=== PATIENT | male | born 1960 | race Caucasian/White ===

== ENCOUNTER 2019-08-09 08:15 | Inpatient (IN) | payer OTHER ==
--- NOTE | 2019-08-09 08:48 | PDOC ---
History of Present Illness - General Chief Complaint: Pain Stated Complaint: ABD PAIN Past History - Past Medical History Allergies/Adverse Reactions: Allergies Allergy/AdvReac Type Severity Reaction Status Date / Time No Known Allergies Allergy Verified 08/09/19 08:35 Home Medications: Ambulatory Orders Amlodipine Besylate 10 mg PO DAILY 08/09/19 Atorvastatin Calcium 40 mg PO HS 08/09/19 Tamsulosin HCl [Flomax -] 0.4 mg PO HS #30 cap.er.24h 08/10/19 - Suicide/Smoking/Psychosocial Hx Smoking History: Never smoked Hx Alcohol Use: Yes (daily) Drug/Substance Use Hx: No *Physical Exam - Vital Signs Last Vital Signs Temp Pulse Resp BP Pulse Ox 97.4 F L 111 H 18 171/96 H 98 08/09/19 08:15 08/09/19 08:15 08/09/19 08:15 08/09/19 08:15 08/09/19 08:15 ED Treatment Course - LABORATORY CBC & Chemistry Diagram: 08/10/19 05:30 08/10/19 05:30 Medical Decision Making - Medical Decision Making HPI: 59yo M with PMH of HTN, HLD, and hernia surgery presenting with abdominal pain. Patient states the pain woke him up around 5:30pm this morning. Thereafter, his pain steadily worsened and is now rated 8/10 and described as "gas" and "pressure." He has never felt anything like this before. Has not taken anything for pain. Reports nausea but no vomiting. Had two semi-loose brown bowel movements today without blood. Never had a colonoscopy. Denies history of kidney stone or diverticulitis. No urinary symptoms. Denies fever, chills, chest pain, or shortness of breath. PCP: Dr. Auguste (affiliated with [facility]) ROS: Constitutional: no fever, no chills HEENT: no throat pain, no dysphagia Cardiovascular: no chest pain, no palpitations Respiratory: no cough, no shortness of breath Gastrointestinal: +abdominal pain, +nausea Genitourinary: no dysuria, no hematuria Musculoskeletal: no myalgia, no arthralgia Skin: no rash, no itching Neurologic: no headache, no weakness PE: General: Awake, alert, and fully oriented, writhing in pain Head: No signs of trauma Eyes: EOMI, sclera anicteric ENT: Moist mucus membranes Neck: Normal ROM, supple Lungs: Lungs clear, Normal breath sounds Cardio: Regular rhythm, S1 and S2 present Abdomen: Tender to palpation in LLQ. Soft, nondistended. +guarding; no rebound, no masses Extremities: Normal range of motion, Distal pulses present SKIN: Warm, Dry, normal turgor Neurologic: Cranial nerves II through XII grossly intact. Normal speech ED Course/MDM: DDX including but not limited to diverticulitis, pyelonephritis, UTI, nephrolithiasis, ACS, gastritis, GERD, colitis, SBO Labs, EKG, CXR, CTAP with IV contrast Morphine Zofran Fluids 08/09/19 08:48 EKG: rate 115, QTc 453, Sinus tachycardia with PVCs CBC WBC 11.2 K/mm3 (4.0-10.0) H 08/09/19 09:30 RBC 4.07 M/mm3 (4.00-5.60) 08/09/19 09:30 Hgb 13.0 GM/dL (11.7-16.9) 08/09/19 09:30 Hct 38.2 % (35.4-49) 08/09/19 09:30 MCV 93.9 fl (80-96) 08/09/19 09:30 MCH 32.0 pg (25.7-33.7) 08/09/19 09:30 MCHC 34.0 g/dl (32.0-35.9) 08/09/19 09:30 RDW 13.3 % (11.9-15.9) 08/09/19 09:30 Plt Count 252 K/MM3 (134-434) 08/09/19 09:30 MPV 8.8 fl (7.5-11.1) 08/09/19 09:30 Absolute Neuts (auto) 10.0 K/mm3 (1.5-8.0) H 08/09/19 09:30 Neutrophils % 89.6 % (42.8-82.8) H 08/09/19 09:30 Lymphocytes % 6.0 % (8-40) L 08/09/19 09:30 Monocytes % 3.8 % (3.8-10.2) 08/09/19 09:30 Eosinophils % 0.1 % (0-4.5) 08/09/19 09:30 Basophils % 0.5 % (0-2.0) 08/09/19 09:30 Nucleated RBC % 0 % (0-0) 08/09/19 09:30 Mild leukocytosis CMP Sodium 140 mmol/L (136-145) 08/09/19 09:31 Potassium 4.1 mmol/L (3.5-5.1) 08/09/19 09:31 Chloride 106 mmol/L (98-107) 08/09/19 09:31 Carbon Dioxide 14 mmol/L (21-32) L 08/09/19 09:31 Anion Gap 19 MMOL/L (8-16) H 08/09/19 09:31 BUN 27.0 mg/dL (7-18) H 08/09/19 09:31 Creatinine 2.2 mg/dL (0.55-1.3) H 08/09/19 09:31 Est GFR (CKD-EPI)AfAm 36.64 08/09/19 09:31 Est GFR (CKD-EPI)NonAf 31.62 08/09/19 09:31 Random Glucose 99 mg/dL (74-106) 08/09/19 09:31 Calcium 10.1 mg/dL (8.5-10.1) 08/09/19 09:31 Total Bilirubin 1.3 mg/dL (0.2-1) H 08/09/19 09:31 AST 45 U/L (15-37) H 08/09/19 09:31 ALT 31 U/L (13-61) 08/09/19 09:31 Alkaline Phosphatase 80 U/L (45-117) 08/09/19 09:31 Troponin I 0.02 ng/ml (0.00-0.05) 08/09/19 09:31 Total Protein 7.9 g/dl (6.4-8.2) 08/09/19 09:31 Albumin 4.2 g/dl (3.4-5.0) 08/09/19 09:31 Lipase 260 U/L (73-393) 08/09/19 09:31 Electrolytes unremarkable Cr elevated 2.2, unknown baseline Tpn undetectable Lipase normal CT order changed to without contrast Pending CT Patient states he is no longer nauseous. Pain is decreased to /10. Will reassess. 08/09/19 12:50 CT showing 2mm stone in L. kidney with mild hydronephrosis, per radiology report : "The lung bases are clear. There is a 2 mm calcification within the lower pole of the left kidney consistent with a nonobstructing calculus. There is a mild degree of left-sided hydronephrosis with dilatation of the left ureter down to the urinary bladder. There is no obvious obstruction and this appearance could be due to a recently passed calculus. Clinical correlation is advised. The liver, spleen, pancreas, adrenal glands and kidneys demonstrate no significant abnormalities. The gallbladder is clear. There is no evidence of intra-abdominal or retroperitoneal lymphadenopathy or fluid collections. There is no evidence of pneumoperitoneum, bowel obstruction or intra-abdominal abscess. There is no CT evidence of acute appendicitis or diverticulitis. Examination of the pelvis demonstrates no evidence of pelvic masses, fluid collections or lymphadenopathy. The prostate gland is enlarged measuring 6.1 x 4.8 x 5.5 cm. There is no evidence of acute bony pathology. IMPRESSION: 1. Left nephrolithiasis. 2. Mild left-sided hydronephrosis and hydroureter without obvious obstruction. The possibility of a recently passed calculus should be considered. Please see above discussion. " Given elevated Cr, hydronephrosis, and nephrolithiasis, we will plan to admit for CAROLINA. 08/09/19 15:[address] Holder who accepted patient for admission under Dr. John They already came and evaluated the patient. Awaiting callback from Dr. Rios Sending second page 08/09/19 16:27 Inpatient team notified via [employer] regarding difficulty in urology consult. They messaged back saying they have already gotten in touch with urology. *DC/Admit/Observation/Transfer Diagnosis at time of Disposition: CAROLINA (acute kidney injury), Nephrolithiasis Abdominal pain Qualifiers: Abdominal location: left lower quadrant Qualified Code(s): R10.32 - Left lower quadrant pain - Discharge Dispostion Disposition: HOME Condition at time of disposition: Stable Decision to Admit order: Yes - Referrals - Patient Instructions - Post Discharge Activity
[2019-08-09] MEDS ORDERED: ONDANSETRON 4 MG/2 ML VIAL IVPUSH ONE (08:58)
[2019-08-09] MEDS ORDERED: SODIUM CHLORIDE 1,000 ML IV STA (08:58)
[2019-08-09] MEDS ORDERED: morphine CARPU-JECT 4 MG/1 ML DISP.SYRIN IVPUSH ONE (08:58)
--- NOTE | 2019-08-09 09:16 | PDOC ---
Attending Attestation - Resident Resident Name: Rhona Holden - ED Attending Attestation I have performed the following: I have examined & evaluated the patient, The case was reviewed & discussed with the resident, I agree w/resident's findings & plan, Exceptions are as noted - HPI HPI: 59 yo M history HTN, HL presents with severe abdominal pain that woke him from sleep at 5am this morning. He states that he was in his usual state of health yesterday. He states he woke up with LLQ abd pain that has progressively worsened since 5am, now severe and constant. Denies prior similar symptoms. No associated urinary symptoms. +Nausea and loose stools, but no vomiting, no fever. No recent illness. - Physicial Exam PE: GENERAL: Awake, alert, and fully oriented. Appears uncomfortable. HEAD: No signs of trauma EYES: PERRLA, EOMI, sclera anicteric, conjunctiva clear ENT: Auricles normal inspection, hearing grossly normal, nares patent, oropharynx clear without exudates. Dry mucosa NECK: Normal ROM, supple, no lymphadenopathy, JVD, or masses LUNGS: Breath sounds equal, clear to auscultation bilaterally. No wheezes, and no crackles HEART: Regular rate and rhythm, normal S1 and S2, no murmurs, rubs or gallops ABDOMEN: Soft, +LLQ tenderness, normoactive bowel sounds. +Guarding, no rebound. No masses EXTREMITIES: Normal range of motion, no edema. No clubbing or cyanosis. No cords, erythema, or tenderness NEUROLOGICAL: Cranial nerves II through XII grossly intact. Normal speech. Motor and sensation intact SKIN: Warm, dry, normal turgor, no rashes or lesions noted. - Medical Decision Making Symptoms may be diverticulitis vs kidney stone. His discomfort and inability to find a comfortable position would suggest kidney stone, however, the GI symptoms would indicate diverticulitis. He has no back pain, no CVAT. Will obtain CT a/p (non-contrast, as he has renal insufficiency- will ultimately contact his PMD to verify if this is preexisting). Addendum: Patient later found to have recently passed a kidney stone (pain free at time of CT). CAROLINA on labs, likely due to the recently passed stone, as the only remaining stone is 2mm and is still in the kidney, therefore not the source of the CAROLINA. More likely it was result of obstruction from the stone that passed.
[2019-08-09] MEDS ORDERED: morphine SULFATE 4 MG/ML VIAL ONE (09:34)
[2019-08-09] MEDS ORDERED: ONDANSETRON 4 MG/2 ML VIAL ONE (09:34)
[2019-08-09 10:08] LABS: BASO % 0.5 % (0-2.0); EOS % 0.1 % (0-4.5); HEMATOCRIT 38.2 % (35.4-49); MEAN CELL VOLUME 93.9 fl (80-96); MEAN PLT VOLUME 8.8 fl (7.5-11.1); MONO % 3.8 % (3.8-10.2); NEUT % 89.6 % (42.8-82.8); PLATELET COUNT 252 K/MM3 (134-434); RBC 4.07 M/mm3 (4.00-5.60); RDW 13.3 % (11.9-15.9); WHITE BLOOD COUNT 11.2 K/mm3 (4.0-10.0)
[2019-08-09 10:27] LABS: EPI CELLS 0.9 /HPF (0-5/HPF); HYALINE CASTS 2 /lpf (0-8); URINE APPEARANCE CLEAR; URINE BACTERIA 1.9 /hpf (NEGATIVE); URINE BILIRUBIN NEGATIVE (NEGATIVE); URINE COLOR YELLOW; URINE GLUCOSE (UA) NEGATIVE (NEGATIVE); URINE KETONE TRACE (NEGATIVE); URINE LEUK ESTERASE NEGATIVE (NEGATIVE); URINE NITRITE NEGATIVE (NEGATIVE); URINE PROTEIN 1+ (NEGATIVE); URINE RBC 1 /hpf (0-4); URINE UROBILINOGEN 0.2 mg/dL (0.2-1.0); URINE WBC 1 /hpf (0-5)
[2019-08-09 10:35] LABS: ALBUMIN 4.2 g/dl (3.4-5.0); BILIRUBIN,TOTAL 1.3 mg/dL (0.2-1); CALCIUM 10.1 mg/dL (8.5-10.1); CREATININE 2.2 mg/dL (0.55-1.3); POTASSIUM 4.1 mmol/L (3.5-5.1); TOT PROT 7.9 g/dl (6.4-8.2)
[2019-08-09 11:14] LABS: INR 0.83 (0.83-1.09); PROTHROMBIN TIME (PATIENT) 9.8 SEC (9.7-13.0)
[2019-08-09] MEDS ORDERED: DEXTROSE 5%-NORMAL SALINE 1,000 ML IV SCH (16:45)
[2019-08-09] MEDS ORDERED: ACETAMINOPHEN 650 MG/20.3 ML ORAL SOLUTION (CUPS) PO PRN (17:31)
--- NOTE | 2019-08-09 17:43 | HP ---
CHIEF COMPLAINT: flank pain PCP: [facility] HISTORY OF PRESENT ILLNESS: Pt is a 59 y/o M with PMH HTN, HLD who presented to ED with complaint of sudden onset L flank pain. Pain began overnight last night and has been severe, deep, and throbbing. He states he has no history of renal stones in himself or in family. He has not noted any blood or stones in his urine. At the time of my interview, pain has subsided. Pt states that he has been urinating very frequently all day, and some time after he received morphine this afternoon, his pain rapidly diminished and has remained at a low level. He has not been straining his urine. ER course was notable for: (1) CT with dilated ureter and 2mm renal stone (2) (3) Recent Travel: denies PAST MEDICAL HISTORY: HTN, HLD PAST SURGICAL HISTORY: hernia remotely Social History: Smoking: denies Alcohol: daily Drugs: denies Family History: no stones Allergies No Known Allergies Allergy (Verified 08/09/19 08:35) HOME MEDICATIONS: Home Medications Medication Instructions Recorded Amlodipine Besylate 10 mg PO DAILY 08/09/19 Atorvastatin Calcium 40 mg PO HS 08/09/19 Losartan Potassium 100 mg PO DAILY 08/09/19 REVIEW OF SYSTEMS CONSTITUTIONAL: Absent: fever, chills, diaphoresis, generalized weakness, malaise, loss of appetite, weight change HEENT: Absent: rhinorrhea, nasal congestion, throat pain, throat swelling, difficulty swallowing, mouth swelling, ear pain, eye pain, visual changes CARDIOVASCULAR: Absent: chest pain, syncope, palpitations, irregular heart rate, lightheadedness , peripheral edema RESPIRATORY: Absent: cough, shortness of breath, dyspnea with exertion, orthopnea, wheezing, stridor, hemoptysis GASTROINTESTINAL: Absent: abdominal pain, abdominal distension, nausea, vomiting, diarrhea, constipation, melena, hematochezia GENITOURINARY: dysuria,flank pain Absent: frequency, urgency, hesitancy, hematuria, , genital pain MUSCULOSKELETAL: Absent: myalgia, arthralgia, joint swelling, back pain, neck pain SKIN: Absent: rash, itching, pallor HEMATOLOGIC/IMMUNOLOGIC: Absent: easy bleeding, easy bruising, lymphadenopathy, frequent infections ENDOCRINE: Absent: unexplained weight gain, unexplained weight loss, heat intolerance, cold intolerance NEUROLOGIC: Absent: headache, focal weakness or paresthesias, dizziness, unsteady gait, seizure, mental status changes, bladder or bowel incontinence PSYCHIATRIC: Absent: anxiety, depression, suicidal or homicidal ideation, hallucinations. PHYSICAL EXAMINATION Vital Signs - 24 hr 08/09/19 08/09/19 08/09/19 08:15 10:10 11:30 Temperature 97.4 F L 98.4 F Pulse Rate 111 H Pulse Rate [ 74 Apical] Respiratory 18 16 Rate Blood Pressure 171/96 H Blood Pressure 138/78 [Left Arm] O2 Sat by Pulse 98 99 99 Oximetry (%) 08/09/19 15:52 Temperature 98.3 F Pulse Rate Pulse Rate [ 96 H Apical] Respiratory Rate Blood Pressure Blood Pressure 147/86 [Left Arm] O2 Sat by Pulse 95 Oximetry (%) Gen: NAD, AAOx3 HEENT: NCAT, EOMI Neck: supple, no jvd Cardio: rrr, normal s1s2, no mrg Pulm: Cta b/l Abd: soft, nontender, nondistended, no flank pain, no tenderness on fist percussion Laboratory Results - last 24 hr 08/09/19 08/09/19 08/09/19 09:30 09:30 09:30 WBC 11.2 H RBC 4.07 Hgb 13.0 Hct 38.2 MCV 93.9 MCH 32.0 MCHC 34.0 RDW 13.3 Plt Count 252 MPV 8.8 Absolute Neuts (auto) 10.0 H Neutrophils % 89.6 H Lymphocytes % 6.0 L Monocytes % 3.8 Eosinophils % 0.1 Basophils % 0.5 Nucleated RBC % 0 PT with INR 9.80 INR 0.83 PTT (Actin FS) 28.7 Sodium Potassium Chloride Carbon Dioxide Anion Gap BUN Creatinine Est GFR (CKD-EPI)AfAm Est GFR (CKD-EPI)NonAf Random Glucose Calcium Total Bilirubin AST ALT Alkaline Phosphatase Troponin I Total Protein Albumin Lipase Urine Color Urine Appearance Urine pH Ur Specific [place] Urine Protein Urine Glucose (UA) Urine Ketones Urine Blood Urine Nitrite Urine Bilirubin Urine Urobilinogen Ur Leukocyte Esterase Urine WBC (Auto) Urine RBC (Auto) Urine Casts (Auto) U Epithel Cells (Auto) Urine Bacteria (Auto) 08/09/19 08/09/19 09:30 09:31 WBC RBC Hgb Hct MCV MCH MCHC RDW Plt Count MPV Absolute Neuts (auto) Neutrophils % Lymphocytes % Monocytes % Eosinophils % Basophils % Nucleated RBC % PT with INR INR PTT (Actin FS) Sodium 140 Potassium 4.1 Chloride 106 Carbon Dioxide 14 L Anion Gap 19 H BUN 27.0 H Creatinine 2.2 H Est GFR (CKD-EPI)AfAm 36.64 Est GFR (CKD-EPI)NonAf 31.62 Random Glucose 99 Calcium 10.1 Total Bilirubin 1.3 H AST 45 H ALT 31 Alkaline Phosphatase 80 Troponin I 0.02 Total Protein 7.9 Albumin 4.2 Lipase 260 Urine Color Yellow Urine Appearance Clear Urine pH 5.0 Ur Specific [place] 1.014 Urine Protein 1+ H Urine Glucose (UA) Negative Urine Ketones Trace H Urine Blood Negative Urine Nitrite Negative Urine Bilirubin Negative Urine Urobilinogen 0.2 Ur Leukocyte Esterase Negative Urine WBC (Auto) 1 Urine RBC (Auto) 1 Urine Casts (Auto) 2 U Epithel Cells (Auto) 0.9 Urine Bacteria (Auto) 1.9 ASSESSMENT/PLAN: Pt is a 59 y/o M with PMH HTN, HLD who presented to ED with complaint of sudden onset L flank pain. Pt is admitted with CAROLINA and renal stone #CAROLINA -2/2 renal stone -ureteral dilation on imaging -2mm stone present in L kidney -? [place] 2/2 stone which has already passed -strain urine -pain control -uro consulted #HTN -amlodipine -hold losartan in setting of carolina #HLD -statin Visit type - Emergency Visit Emergency Visit: Yes ED Registration Date: 08/09/19 Care time: The patient presented to the Emergency Department on the above date and was hospitalized for further evaluation of their emergent condition. - New Patient This patient is new to me today: Yes Date on this admission: 08/09/19 - Critical Care Critical Care patient: No ATTENDING PHYSICIAN STATEMENT I saw and evaluated the patient. I reviewed the resident's note and discussed the case with the resident. I agree with the resident's findings and plan as documented. SUBJECTIVE: OBJECTIVE: ASSESSMENT AND PLAN:
[2019-08-09] MEDS ORDERED: morphine SULFATE 4 MG/ML VIAL IVPUSH PRN (18:13)
[2019-08-09] MEDS ORDERED: SODIUM CHLORIDE 1,000 ML IV SCH (18:15)
--- NOTE | 2019-08-09 18:16 | PN ---
Teaching Attending Note Name of Resident: Guilherme Holder ATTENDING PHYSICIAN STATEMENT I saw and evaluated the patient. I reviewed the resident's note and discussed the case with the resident. I agree with the resident's findings and plan as documented with exceptions below. SUBJECTIVE: 59 yom with PMHx of HTN, HLD admitted with sudden onset of left flank pain, radiating down left groin starting around 5;30 this AM, came to Ed. He received a dose of morphine and symptoms have resolved since with no recurrence. No similar prior history, fevers, chills, dysuria, urinary frequency, urgency. Was found with left hydronephrosis/hydroureter, possible passed stone and another 2 mm stone lower pole of left kidney. Has been voiding well in the ED. OBJECTIVE: Vital Signs Period Temp Pulse Resp BP Sys/Horvath Pulse Ox Last 24 Hr 97.4 F-98.4 F 74-111 16-18 138-171/78-96 95-99 Intake & Output 08/06/19 08/07/19 08/08/19 08/09/19 23:59 23:59 23:59 23:59 Intake Total 1000 Balance 1000 Weight 195 lb GENERAL: Awake, alert, and fully oriented, in no acute distress. HEAD: Normal with no signs of trauma. EYES: Pupils equal, round and reactive to light, extraocular movements intact, sclera anicteric, conjunctiva clear. No lid lag. EARS, NOSE, THROAT: Ears normal, nares patent, oropharynx clear without exudates. Moist mucous membranes. NECK: Normal range of motion, supple LUNGS: Breath sounds equal, clear to auscultation bilaterally. No wheezes, and no crackles. No accessory muscle use. HEART: Regular rate and rhythm, normal S1 and S2 ABDOMEN: Soft, nontender, not distended, normoactive bowel sounds, no guarding, no rebound, no masses. No CVA/LLQ or suprapubic tenderness MUSCULOSKELETAL: Normal range of motion at all joints. No bony deformities or tenderness. No CVA tenderness. UPPER EXTREMITIES: 2+ pulses, warm, well-perfused. No cyanosis. No clubbing. No peripheral edema. LOWER EXTREMITIES: 2+ pulses, warm, well-perfused. No calf tenderness. No peripheral edema. NEUROLOGICAL: AAoxo3, facial symmetry, tongue midline, Cranial nerves II-XII intact. Normal speech. Gait not observed PSYCHIATRIC: Cooperative. Good eye contact. Appropriate mood and affect. SKIN: Warm, dry, normal turgor, no rashes or lesions noted, normal capillary refill. Home Medications Medication Instructions Recorded Amlodipine Besylate 10 mg PO DAILY 08/09/19 Atorvastatin Calcium 40 mg PO HS 08/09/19 Losartan Potassium 100 mg PO DAILY 08/09/19 Active Medications Acetaminophen (Tylenol Oral Solution -) 650 mg PO Q6H PRN PRN Reason: PAIN Amlodipine Besylate (Norvasc -) 10 mg PO DAILY [facility] Atorvastatin Calcium (Lipitor -) 40 mg PO HS [facility] Heparin Sodium (Porcine) (Heparin -) 5,000 unit SQ TID [facility] Sodium Chloride (Normal Saline -) 1,000 mls @ 150 mls/hr IV ASDIR [facility] Morphine Sulfate (Morphine Injection -) 2 mg IVPUSH Q6H PRN PRN Reason: PAIN LEVEL 7 - 10 Tamsulosin HCl (Flomax -) 0.4 mg PO HS [facility] Laboratory Results - last 24 hr 08/09/19 08/09/19 08/09/19 09:30 09:30 09:30 WBC 11.2 H RBC 4.07 Hgb 13.0 Hct 38.2 MCV 93.9 MCH 32.0 MCHC 34.0 RDW 13.3 Plt Count 252 MPV 8.8 Absolute Neuts (auto) 10.0 H Neutrophils % 89.6 H Lymphocytes % 6.0 L Monocytes % 3.8 Eosinophils % 0.1 Basophils % 0.5 Nucleated RBC % 0 PT with INR 9.80 INR 0.83 PTT (Actin FS) 28.7 Sodium Potassium Chloride Carbon Dioxide Anion Gap BUN Creatinine Est GFR (CKD-EPI)AfAm Est GFR (CKD-EPI)NonAf Random Glucose Calcium Total Bilirubin AST ALT Alkaline Phosphatase Troponin I Total Protein Albumin Lipase Urine Color Urine Appearance Urine pH Ur Specific [place] Urine Protein Urine Glucose (UA) Urine Ketones Urine Blood Urine Nitrite Urine Bilirubin Urine Urobilinogen Ur Leukocyte Esterase Urine WBC (Auto) Urine RBC (Auto) Urine Casts (Auto) U Epithel Cells (Auto) Urine Bacteria (Auto) 08/09/19 08/09/19 09:30 09:31 WBC RBC Hgb Hct MCV MCH MCHC RDW Plt Count MPV Absolute Neuts (auto) Neutrophils % Lymphocytes % Monocytes % Eosinophils % Basophils % Nucleated RBC % PT with INR INR PTT (Actin FS) Sodium 140 Potassium 4.1 Chloride 106 Carbon Dioxide 14 L Anion Gap 19 H BUN 27.0 H Creatinine 2.2 H Est GFR (CKD-EPI)AfAm 36.64 Est GFR (CKD-EPI)NonAf 31.62 Random Glucose 99 Calcium 10.1 Total Bilirubin 1.3 H AST 45 H ALT 31 Alkaline Phosphatase 80 Troponin I 0.02 Total Protein 7.9 Albumin 4.2 Lipase 260 Urine Color Yellow Urine Appearance Clear Urine pH 5.0 Ur Specific [place] 1.014 Urine Protein 1+ H Urine Glucose (UA) Negative Urine Ketones Trace H Urine Blood Negative Urine Nitrite Negative Urine Bilirubin Negative Urine Urobilinogen 0.2 Ur Leukocyte Esterase Negative Urine WBC (Auto) 1 Urine RBC (Auto) 1 Urine Casts (Auto) 2 U Epithel Cells (Auto) 0.9 Urine Bacteria (Auto) 1.9 CT a/p results reviewed EKG: sinus tach, PVC ASSESSMENT AND PLAN: 59 yom with HTN, HLD, admitted with obstructive uropathy -Left nephrolithiasis -Mild left hydronephrosis/Hydroureter, suspected from passed calculus -CAR[place] in the setting of above, ?over underlying CKD -HTN -HLD Plan: symptoms resolved. Urology consulted, discussed with Dr. Massey. Aggressive IVF, strain all urine. Pain control with morphine. NO urological intervention for now. Start flomax No fevers, leucocytosis and neg urinalysis, monitor off antibiotics. Patient reports h/o 'abnormal creatinine' that resolved after BP medication change. Retrieve prior Cr from PCP's office, Hold losartan. Continue statin. DVTPPx heparin Dispo pending clinical improvement. Discussed with patient in detail, all questions answered Care co-ordinated with ED and urology Total admit time 65 min.
[2019-08-09] MEDS ORDERED: HEPARIN NA (PORCINE) 5,000 UNITS/ML 1ML VIAL ONE (21:53)
[2019-08-09] MEDS ORDERED: TAMSULOSIN HCL 0.4 MG CAP ONE (21:53)
[2019-08-09] MEDS ORDERED: ATORVASTATIN CA 40 MG TABLET (FP) ONE (21:53)
[2019-08-09] MEDS ORDERED: ATORVASTATIN CA 40 MG TABLET (FP) PO SCH (22:00)
[2019-08-09] MEDS ORDERED: TAMSULOSIN HCL 0.4 MG CAP PO SCH (22:00)
[2019-08-09] MEDS: HEPARIN NA (PORCINE) 5,000 UNITS/ML 1ML VIAL SQ SCH (22:02)
[2019-08-09 22:47] VITALS: BMI 27.2
[2019-08-09] MEDS ORDERED: MELATONIN 5 MG TABLETS PO ONE (23:29)
[2019-08-10] MEDS: HEPARIN NA (PORCINE) 5,000 UNITS/ML 1ML VIAL SQ SCH (05:53)
[2019-08-10 07:45] LABS: INR 0.89 (0.83-1.09); PROTHROMBIN TIME (PATIENT) 10.5 SEC (9.7-13.0)
[2019-08-10 08:02] LABS: BLOOD UREA NITROGEN 22.2 mg/dL (7-18); CALCIUM 8.6 mg/dL (8.5-10.1); CREATININE 1.6 mg/dL (0.55-1.3); POTASSIUM 3.5 mmol/L (3.5-5.1)
[2019-08-10 08:03] LABS: BASO % 0.5 % (0-2.0); EOS % 1.2 % (0-4.5); HEMATOCRIT 35.8 % (35.4-49); LYMPH % 21.1 % (8-40); MCH 32.3 pg (25.7-33.7); MCHC 33.6 g/dl (32.0-35.9); MEAN PLT VOLUME 9.7 fl (7.5-11.1); NEUT % 68.2 % (42.8-82.8); PLATELET COUNT 186 K/MM3 (134-434); RBC 3.72 M/mm3 (4.00-5.60); RDW 13.7 % (11.9-15.9); WHITE BLOOD COUNT 6.5 K/mm3 (4.0-10.0)
[2019-08-10] MEDS ORDERED: TAMSULOSIN HCL 0.4 MG CAP PO SCH (08:30)
--- NOTE | 2019-08-10 08:45 | CON.GU ---
Consult Consult Specialty:: Referred by:: Medicine Reason for Consultation:: hydronephrosis/renal colic/CAROLINA - History of Present Illness Chief Complaint: hydronephrosis/renal colic/CAR[place] History of Present Illness: 59 year old male with left renal colic yesterday which is now resolved. CT showed 2mm kidney stone and some hydro, probably from a passed stone. he also has a very large prostate. He has no other history. Creatinine on admission was 2.2, now it is 1.6 - History Source History Provided By: Patient Limitations to Obtaining History: No Limitations - Past Medical History Renal/: No: BPH, Renal Calculi - Alcohol/Substance Use Hx Alcohol Use: Yes (daily) - Smoking History Smoking history: Never smoked Have you smoked in the past 12 months: No Home Medications - Allergies Allergies/Adverse Reactions: Allergies Allergy/AdvReac Type Severity Reaction Status Date / Time No Known Allergies Allergy Verified 08/09/19 08:35 - Home Medications Home Medications: Ambulatory Orders Amlodipine Besylate 10 mg PO DAILY 08/09/19 Atorvastatin Calcium 40 mg PO HS 08/09/19 Losartan Potassium 100 mg PO DAILY 08/09/19 Review of Systems - Review of Systems Constitutional: reports: No Symptoms Gastrointestinal: reports: No Symptoms Genitourinary: reports: Flank Pain Physical Exam- Vital Signs: Vital Signs Temperature 98.2 F 08/09/19 21:49 Pulse Rate 84 08/09/19 21:49 Respiratory Rate 20 08/09/19 21:49 Blood Pressure 139/86 08/09/19 21:49 O2 Sat by Pulse Oximetry (%) 98 08/10/19 06:00 Constitutional: Yes: Well Nourished, No Distress, Calm Respiratory: No: Accessory Muscle Use Gastrointestinal: Yes: Soft Renal/: No: CVA Tenderness - Left, CVA Tenderness - Right, Torres Present, Hematuria, Incontinence Labs: CBC, BMP 08/10/19 05:30 Imaging - Results Cat Scan: Report Reviewed Problem List - Problems (1) CAROLINA (acute kidney injury) Assessment/Plan: creatinine is improved. pain is resolved. Follow up as outpatient in office. Code(s): N17.9 - ACUTE KIDNEY FAILURE, UNSPECIFIED (2) Abdominal pain Code(s): R10.9 - UNSPECIFIED ABDOMINAL PAIN Qualifiers: Abdominal location: left lower quadrant Qualified Code(s): R10.32 - Left lower quadrant pain (3) Nephrolithiasis Code(s): N20.0 - CALCULUS OF KIDNEY
[2019-08-10] MEDS ORDERED: amLODIPine BESYLATE 10 MG TABLET (FP) PO SCH (10:00)
--- NOTE | 2019-08-10 11:53 | DS ---
Physical Exam: SUBJECTIVE: Patient seen and examined, no further pain. No fevers, chills or urinary complaints. OBJECTIVE: Vital Signs Period Temp Pulse Resp BP Sys/Horvath Pulse Ox Last 24 Hr 97.7 F-98.3 F 81-96 20-20 139-147/86-86 95-98 Intake & Output 08/07/19 08/08/19 08/09/19 08/10/19 23:59 23:59 23:59 23:59 Intake Total 1150 1550 Balance 1150 1550 Weight 195 lb 8 oz PHYSICAL EXAM GENERAL: The patient is awake, alert, and fully oriented, in no acute distress. HEAD: Normal with no signs of trauma. EYES: PERRL, extraocular movements intact, sclera anicteric, conjunctiva clear. ENT: Ears normal, nares patent, oropharynx clear without exudates, moist mucous membranes. NECK: Trachea midline, full range of motion, supple. LUNGS: Breath sounds equal, clear to auscultation bilaterally, no wheezes, no crackles, no accessory muscle use. HEART: Regular rate and rhythm, S1, S2 ABDOMEN: Soft, nontender, nondistended, normoactive bowel sounds, no guarding, no rebound, no CVA or LLQ tenderness EXTREMITIES: 2+ pulses, warm, well-perfused, no edema. PSYCH: Normal mood, normal affect. SKIN: Warm, dry, normal turgor, no rashes or lesions noted. LABS Laboratory Results - last 24 hr 08/10/19 08/10/19 08/10/19 05:30 05:30 05:30 WBC 6.5 RBC 3.72 L Hgb 12.0 Hct 35.8 MCV 96.0 MCH 32.3 MCHC 33.6 RDW 13.7 Plt Count 186 D MPV 9.7 D Absolute Neuts (auto) 4.5 Neutrophils % 68.2 D Lymphocytes % 21.1 D Monocytes % 9.0 D Eosinophils % 1.2 D Basophils % 0.5 Nucleated RBC % 0 PT with INR 10.50 INR 0.89 Sodium 138 Potassium 3.5 Chloride 105 Carbon Dioxide 23 Anion Gap 10 BUN 22.2 H Creatinine 1.6 H Est GFR (CKD-EPI)AfAm 53.85 Est GFR (CKD-EPI)NonAf 46.46 Random Glucose 92 Calcium 8.6 Microbiology 08/09/19 09:31 Urine - Urine Clean Catch Urine Culture - Final NO GROWTH OBTAINED CT A/p: The lung bases are clear. There is a 2 mm calcification within the lower pole of the left kidney consistent with a nonobstructing calculus. There is a mild degree of left-sided hydronephrosis with dilatation of the left ureter down to the urinary bladder. There is no obvious obstruction and this appearance could be due to a recently passed calculus. Clinical correlation is advised. The liver , spleen, pancreas, adrenal glands and kidneys demonstrate no significant abnormalities. The gallbladder is clear. There is no evidence of intra- abdominal or retroperitoneal lymphadenopathy or fluid collections. There is no evidence of pneumoperitoneum, bowel obstruction or intra-abdominal abscess. There is no CT evidence of acute appendicitis or diverticulitis. Examination of the pelvis demonstrates no evidence of pelvic masses, fluid collections or lymphadenopathy. The prostate gland is enlarged measuring 6.1 x 4.8 x 5.5 cm. There is no evidence of acute bony pathology. IMPRESSION: 1. Left nephrolithiasis. 2. Mild left-sided hydronephrosis and hydroureter without obvious obstruction. The possibility of a recently passed calculus should be considered. Please see above discussion. renal/Bladder US: The kidneys are normal in size with the right kidney measuring 10.1 x 5.3 x 4.8 cm and the left kidney measuring 11.3 x 5.3 x 6.1 cm. There is slight dilatation of the left upper collecting system. There are also small echogenic foci centrally within the left kidney suspicious for nephrolithiasis. There is no evidence of right-sided hydronephrosis or contour deforming renal masses. Evaluation of the urinary bladder demonstrates no intrinsic bladder abnormalities. Bilateral ureteral jets are visualized. A pre-void bladder volume of 286 cc was calculated. A post voiding image demonstrates incomplete emptying of the bladder with a large postvoid residual of 124 cc. The gland is enlarged with a total prostate volume of 32.8 cc. IMPRESSION: 1. Possible left nephrolithiasis with mild hydronephrosis. 2. Large postvoid residual. 3. Prostatic enlargement. HOSPITAL COURSE: Date of Admission:08/09/19 Date of Discharge: 08/10/19 Minutes to complete discharge: 42 Discharge Summary Reason For Visit: ACUTE KIDNEY INJURY Current Active Problems [place] (acute kidney injury) (Acute) Abdominal pain (Acute) Nephrolithiasis (Acute) Hospital Course: 59 yom with HTN, HLD, admitted left flank pain, radiating to groin. His symptoms resolved after receiving a dose of morphine in the ED. He had CT A/P as above, showing mild left sided hydronephrosis/Hydroureter likely passed calculus and 2 mm stone lower pole of left kidney. He also had [place] with cr 2.2. He was placed on aggressive IV hydration and losartan was held. His renal function has improved, creatinine 1.6 prior to discharge. He had renal/bladder Ultrasound as above with mild left hydronephrosis and hydroureter. He was seen by urology and recommended outpatient follow up. He will be started on flomax. He is advised to hold his losartan, home BP monitoring and outpatient renal function monitoring and urology follow up. He continued to stay pain free during his stay and will be discharged home in stable condition. Condition: Stable - Instructions Diet, Activity, Other Instructions: You were admitted with left kidney stone, abnormal kidney function and CT scan showing mild enlargement of left kidney likely from passed stone. You were placed on hydration, your kidney numbers have improved. You were seen by urologist and advised outpatient follow up. You were also found with enlarged prostate and have been started on flomax MEDICATIONS: Do not take your losartan for now till further instructed by your doctor Start flomax. Take it at night time and if you notice any new positional dizziness, stop medication and contact your doctor Continue other medications as before. INSTRUCTIONS: Ensure to drink plenty of fluids. Home BP monitoring till your next doctor visit. FOLLOW UP: Blood work BMP (basic metabolic panel) for your kidneys in 3 days with your doctor. With Primary care doctor in 3-5 days (follow up on BP and kidney function) With urologist in 1 week (information provided on Dr. Acuña who saw you in the hospital) If you notice any new fevers, chills, nausea, vomiting, severe pain, burning urination, or any new concerns, please call 911 or come to the ED. Referrals: Jose Varma MD [Staff Physician] - 1 Week Disposition: HOME - Home Medications Comprehensive Discharge Medication List: Ambulatory Orders Amlodipine Besylate 10 mg PO DAILY 08/09/19 Atorvastatin Calcium 40 mg PO HS 08/09/19 Tamsulosin HCl [Flomax -] 0.4 mg PO HS #30 cap.er.24h 08/10/19 This patient is new to me today: No Emergency Visit: Yes ED Registration Date: 08/09/19 Care time: The patient presented to the Emergency Department on the above date and was hospitalized for further evaluation of their emergent condition. Critical Care patient: No - Discharge Referral Referred to [facility] No
[2019-08-10 12:06] VITALS: BP 138/78; PULSE 69; TEMP 98.4
--- NOTE | 2019-08-10 14:11 | EKG ---
Test Reason : Blood Pressure : / mmHG Vent. Rate : 115 BPM Atrial Rate : 115 BPM P-R Int : 182 ms QRS Dur : 092 ms QT Int : 328 ms P-R-T Axes : 043 056 036 degrees QTc Int : 453 ms SINUS TACHYCARDIA WITH OCCASIONAL PREMATURE VENTRICULAR COMPLEXES NO PREVIOUS ECGS AVAILABLE Confirmed by GENTRY GREENWOOD MD ([id number]) on 08/10/2019 2:11:13 PM Referred By: Confirmed By:GENTRY GREENWOOD MD
== END 2019-08-10 12:06 | disposition home or self-care (01) | DRG 684 ==
LOC: JER 08:15 → JERBED 15:08 → J8W 22:32
PROVIDERS: ADMIT Hospitalist; ATTEND Hospitalist
DX: N17.9 Acute kidney failure, unspecified (principal); E78.5 Hyperlipidemia, unspecified; I10 Essential (primary) hypertension; N13.2 Hydronephrosis with renal and ureteral calculous obstruction; R10.9 Unspecified abdominal pain
CPT/HCPCS: 36415; 71045-TC-FY; 74176-TC; 76775-TC; 76856-TC; 80048; 80053; 81003; 83690; 84484; 85025; 85610; 85730; 87086; 93005; 93010; 99284-25; J1644; J7030